=== PATIENT | male | born 1945 | race Asian ===

== ENCOUNTER 2018-01-28 06:34 | Day surgery (SDC) | payer OTHER ==
[~2018-01-28] VITALS: Ht 152.4 cm; Wt 63.0 kg
[2018-01-28 06:49] VITALS: BP 134/76
[2018-01-28 10:24] VITALS: BP 108/67
== END 2018-01-28 09:45 | disposition home or self-care (01) ==
LOC: DS 06:34 → GI 07:30 → OR 07:30 → DS 09:45
PROVIDERS: Internal Medicine Gastroenterology
PROC: 0DBL8ZZ Excision of Transverse Colon, Via Natural or Artificial Opening Endoscopic (ICD-10-PCS; principal; 2018-01-28 07:30)
DX: D12.3 Benign neoplasm of transverse colon (principal); K64.8 Other hemorrhoids; K92.1 Melena; I10 Essential (primary) hypertension
CPT/HCPCS: 45378; J1200; J1610; J2250; J2310; J3010; J3490